=== PATIENT | male | born 2000 | race Hispanic/Latino ===

== ENCOUNTER 2021-08-05 13:38 | Emergency (ER) | payer SELFPAY ==
[~2021-08-05 13:38] MED LIST: Iopamidol-370 76% 500 ML 1 ML ONE
[2021-08-05] MEDS ORDERED: Ketorolac Tromethamine 30 MG/ML VIAL ONE ×2 (15:13→17:21)
[2021-08-05] MEDS ORDERED: Ondansetron ODT 4 MG TAB ONE (16:25)
[2021-08-05] MEDS ORDERED: traMADol HCl 50 MG TAB PO SCH (16:45)
[2021-08-05] MEDS ORDERED: Ondansetron ODT 4 MG TAB PO SCH (16:45)
== END 2021-08-05 18:11 | disposition home or self-care (01) ==
LOC: ERS 13:38
DX: U07.1 COVID-19 (principal); J12.82 Pneumonia due to coronavirus disease 2019
CPT/HCPCS: 36415; 71045; 71275; 85379; 96374; J1885; Q0162; Q9967

== ENCOUNTER 2021-08-07 08:00 | Emergency (ER) | payer SELFPAY ==
[2021-08-07] MEDS ORDERED: hydrOXYzine 25 MG TAB ONE (08:10)
== END 2021-08-07 10:13 | disposition home or self-care (01) ==
LOC: ERS 08:00
DX: U07.1 COVID-19 (principal); F41.9 Anxiety disorder, unspecified
CPT/HCPCS: 93005

== ENCOUNTER 2025-05-24 18:44 | Emergency (ER) | payer OTHER, SELFPAY ==
[2025-05-24] MEDS ORDERED: Morphine 4 MG/ML VIAL ONE (20:07)
[2025-05-24] MEDS ORDERED: Ketorolac Tromethamine 30 MG (1 mL) VIAL ONE (20:07)
[2025-05-24] MEDS ORDERED: Ondansetron PF 4 MG/2 ML Vial ONE (20:07)
[2025-05-24 20:11] LABS: #Basophils 0.05 10x3/uL (0.0-0.2); #Eosinophils 0.06 10x3/uL (0.0-0.7); #Monocytes 0.56 10x3/uL (0.11-0.59); #Neutrophils 6.42 10x3/uL (1.40-6.50); %Basophils 0.6 % (0.0-1.0); %Eosinophils 0.7 % (0.0-10.0); %Lymphocytes 13.7 % (21.0-51.0); %Monocytes 6.8 % (0.0-10.0); Hematocrit 41.4 % (42.0-52.0); Hemoglobin 14.4 g/dL (14.0-18.0); Mean Corpuscular HGB CONC 34.8 g/dL (32.0-36.0); Mean Corpuscular Hemoglobin 29.5 pg (27.0-31.0); Mean Corpuscular Volume 84.8 fL (78.0-98.0); Mean Platelet Volume 10.4 fL (7.4-10.4); Platelet Count 245 10x3/uL (130-400); RBC Distribution Width 12.1 % (11.5-14.5); Red Blood Cell (RBC) Count 4.88 mill/uL (4.70-6.10); White Blood Cell (WBC) Count 8.24 10x3/uL (4.8-10.8)
[2025-05-24 20:24] LABS: AST (SGOT) 41 U/L (11-34); Alkaline Phosphatase 49 U/L (40-110); Anion Gap 15 mmol/L (10-20); BUN (Urea Nitrogen) 15 mg/dL (8.9-20.6); Bilirubin, Total 0.6 mg/dL (0.3-1.2); Calc. Creatinine Clearance 0 mL/min (70-130); Calcium 9.7 mg/dL (7.8-10.44); Carbon Dioxide 25 mmol/L (22-29); Chloride 107 mmol/L (98-107); Estimated GFR 113; Globulin 2.8 g/dL (2.4-3.5); Glucose 104 mg/dL (70-105); Potassium 3.6 mmol/L (3.5-5.1); Protein, Total 7.8 g/dL (6.0-8.3); Sodium 143 mmol/L (136-145)
[2025-05-24 20:25] LABS: ALT (SGPT) 17 U/L (Less than 45); CK (CPK) 1344 U/L (30-200); Lipase 20 U/L (8-78); Magnesium 1.9 mg/dL (1.6-2.6)
[2025-05-24 20:28] LABS: Troponin I Less than 0.010 ng/mL (< 0.028)
== END 2025-05-24 22:30 | disposition home or self-care (01) ==
LOC: ERS 18:44
DX: E86.0 Dehydration (principal); F17.210 Nicotine dependence, cigarettes, uncomplicated
CPT/HCPCS: 71045; 80053; 82550; 83690; 83735; 84484; 85025; 93005; 96374; 96375; J1885; J2270; J2405